=== PATIENT | female | born 1940 | race Caucasian/White ===

== ENCOUNTER 2019-09-19 04:16 | Emergency (ER) | payer MEDICARE ==
[~2019-09-19] VITALS: Ht 170.2 cm; Wt 72.6 kg
[~2019-09-19 04:16] MED LIST: NORPTMEDS CO
[2019-09-19] MEDS ORDERED: EPINEPHrine HCL 1 MG/10 ML SYRG IV ONE (04:23)
[2019-09-19] MEDS ORDERED: ONDANSETRON HCL 4 MG/2 ML VIAL IV ONE (04:45)
[2019-09-19] MEDS ORDERED: MORPHINE SULFATE 4 MG/ML SYR/VIAL IV ONE (04:45)
[2019-09-19 04:58] LABS: Basophils # (auto) 0.1 uL; Basophils % (auto) 0.6 % (0.0-2.0); Eosinophils # (auto) 0.2 uL; Eosinophils % (auto) 1.4 % (0.0-7.0); Hematocrit 42.4 % (36.0-46.0); Hemoglobin 14.2 g/dL (12.2-16.2); Lymphocytes # (auto) 2.3 uL; Lymphocytes % (auto) 15.6 % (10.0-50.0); Mean Corpuscular Hemoglobin 30.5 pg (28.0-32.0); Mean Corpuscular Hgb Conc. 33.4 g/dL (32.0-36.0); Mean Corpuscular Volume 91.4 fL (80.0-100.0); Monocytes # (auto) 0.6 uL; Monocytes % (auto) 4.1 % (0.0-12.0); Neutrophils # (auto) 11.3 uL; Neutrophils % (auto) 78.3 % (37.0-80.0); Platelet Count (auto) 277 10^3/uL (140-450); Red Blood Cells 4.64 10^6/uL (4.0-5.20); Red Cell Distribution Width 14.7 % (11.8-14.3); White Blood Cell 14.5 10^3/uL (4.4-10.8)
[2019-09-19] MEDS ORDERED: FUROSEMIDE 40 MG/4 ML VIAL IV ONE ×2 (05:00→05:15)
[2019-09-19 05:14] LABS: INR < 0.93 (0.9-1.15); Partial Thromboplastin Time 22.8 sec (23.64-32.05)
[2019-09-19 05:38] LABS: Albumin 3.5 g/dL (3.4-5.0); BUN/Creatinine Ratio 15.5; Calcium 8.8 mg/dL (8.5-10.1); Magnesium 2.2 mg/dL (1.6-2.6); Potassium 3.9 mmol/L (3.5-5.1)
[2019-09-19 05:43] LABS: Bilirubin, Total 0.7 mg/dL (0.2-1.0); Total Protein 7.5 g/dL (6.4-8.2)
[2019-09-19] MEDS ORDERED: ENOXAPARIN SOD 80 MG/0.8ML SYRINGE SC ONE (06:45)
[2019-09-19] MEDS ORDERED: SODIUM BICARBONATE 50ML VIAL 150 ML in SOD CHL 0.45% 1,000 ML IV ONE ×3 (07:00→07:45)
[2019-09-19] MEDS ORDERED: EPINEPHrine HCL 1 MG/10 ML SYRG ONE ×3 (07:05→07:42)
[2019-09-19] MEDS ORDERED: SODIUM BICARBONATE 8.4% INJ 50ML SYRINGE ONE ×5 (07:06→07:45)
[2019-09-19] MEDS ORDERED: EPINEPHrine HCL 250 ML IV SCH (07:09)
[2019-09-19] MEDS ORDERED: NITROGLYCERIN 0.4 MG SL TAB SL PRN (07:15)
[2019-09-19] MEDS ORDERED: D5W/SOD CHLO 0.9% 1,000 ML IV SCH (07:15)
[2019-09-19] MEDS ORDERED: ONDANSETRON HCL 4 MG/2 ML VIAL IV PRN (07:15)
[2019-09-19] MEDS ORDERED: DEXTROSE (50%) 50ML SYRG IV PRN (07:15)
[2019-09-19] MEDS ORDERED: MORPHINE SULF INJ 2 MG/ML SYRINGE 1ML IV PRN (07:15)
[2019-09-19] MEDS ORDERED: SODIUM BICARBONATE 8.4 % INJ 50ML VIAL IV ONE (07:21)
[2019-09-19] MEDS ORDERED: PIPERACILLIN-TAZOB 3.375GM 100 ML IV ONE (07:22)
[2019-09-19 07:31] VITALS: BP 130/105
[2019-09-19] MEDS ORDERED: ANGIOMAX 250 MG VIAL IV ONE (07:35)
[2019-09-19] MEDS ORDERED: SODIUM CHL 0.9% 0 ML ONE (07:36)
[2019-09-19] MEDS ORDERED: fentaNYL CITRATE 100 MCG/2 ML VL ONE (07:36)
[2019-09-19] MEDS ORDERED: HEPARIN SODIUM (PORCINE) 5000 UNITS/ML 1ML VIAL ONE (07:36)
[2019-09-19] MEDS ORDERED: MIDAZOLAM HCL 1MG/1ML-2 ML VIAL ONE (07:36)
[2019-09-19] MEDS ORDERED: DOPamine 1600MCG/ML D5W 0 ML IV ONE (07:40)
[2019-09-19] MEDS ORDERED: ADENOSINE 6 MG/2 ML INJ IV ONE (07:40)
[2019-09-19] MEDS ORDERED: NOREPINEPHRINE 8 MG/250ML KIT 0 ML IV ONE (07:41)
[2019-09-19] MEDS ORDERED: SODIUM BICARBONATE 50ML VIAL 100 ML in SOD CHL 0.45% 1,000 ML IV SCH (07:45)
[2019-09-19] MEDS ORDERED: IOHEXOL 350 MG/ML 100ML IJ ONE (07:48)
[2019-09-19] MEDS ORDERED: LIDOCAINE 2%HCL (LOCAL ANESTH.) INJ 20ML MDV ONE (07:48)
[2019-09-19] MEDS ORDERED: ENOXAPARIN SOD 80 MG/0.8ML SYRINGE SC SCH (10:00)
[2019-09-19] MEDS ORDERED: ACCU-CHEK COMFORT CURVE STRIP VI SCH (12:00)
[2019-09-19] MEDS ORDERED: AMIODARONE HCL (50 MG/ ML) 3 ML VIAL IV ONE (16:13)
== END 2019-09-19 14:18 | disposition expired ==
LOC: EDBD 04:16 → EDUNIT# 04:16 → ER 04:22
DX: I21.4 Non-ST elevation (NSTEMI) myocardial infarction (principal); I50.9 Heart failure, unspecified
CPT/HCPCS: 36415; 71045; 80053; 82962; 83735; 84484; 85025; 85379; 85610; 85730; 93005; 93306; 96374; 96375; 99285; C1751; J0171; J0282; J1644; J1650; J1940; J2270; J2405; J2543; Q9967; 92950; J0153; J2250